=== PATIENT | female | born 1955 ===

== ENCOUNTER 2024-11-02 06:19 | Day surgery (SDC) | payer OTHER ==
[2024-10-27 10:11] VITALS: BP 154/67
[2024-10-27 10:23] LABS: BASO % 0.4 % (0.1-1.2); EOS % 2.6 % (0.7-7.0); HEMATOCRIT 43.1 % (34.1-44.9); HEMOGLOBIN 13.6 g/dL (11.2-15.7); LYMPH # 1.64 (1.18-3.74); LYMPH % 20.9 % (19.3-53.1); MONO # 0.55 (0.24-0.82); PLATELET COUNT 263 K/uL (163-369); RED BLOOD COUNT 5.43 M/uL (3.93-5.22)
[2024-10-27 10:59] LABS: INR 1.04; PARTIAL THROMBOPLASTIN TIME 27.4 SECONDS (22.0-34.0); PROTHROMBIN TIME 11.3 SECONDS (9.0-11.5)
[2024-10-27 11:21] LABS: ALBUMIN 3.5 gm/dL (3.4-5.0); BILIRUBIN TOTAL 0.59 mg/dL (0.3-1.2); CALCIUM 9.4 mg/dL (8.5-10.1); CREATININE SERUM 1.22 mg/dL (0.55-1.02); GFR 43.96; GLOBULINA 3.8 G/DL (2.4-3.5); POTASSIUM 4.04 mEq/L (3.5-5.1); TOTAL PROTEIN 7.3 gm/dL (6.4-8.2)
[2024-10-27 11:49] LABS: PH,URINE 5.5 (5.0-8.0); URINE APPEARANCE Cloudy; URINE BACTERIA 3600.6 uL (0.0-1933); URINE BILIRRUBIN Small (NEGATIVE); URINE BLOOD Moderate; URINE CAST 1.76 uL (0.0-1.40); URINE COLOR Dark Yellow; URINE EPITHELIAL CELLS 46.5 uL (0.0-38.8); URINE GLUCOSE Negative (NEGATIVE); URINE KETONE Trace (NEGATIVE); URINE LEUKOCYTE Small; URINE NITRATE Negative; URINE PROTEIN 30 (NEGATIVE); URINE RBC 20.9 uL (0.0-20.8); URINE WBC 86.2 uL (0.0-23.2)
[~2024-11-02] VITALS: Ht 160 cm; Wt 102.1 kg
[~2024-11-02 06:19] MED LIST: NO; PREVACID30 MG PO
[2024-11-02] MEDS ORDERED: POVIDONE-IODINE 118 ML BOTT TOP ONE (07:19)
[2024-11-02] MEDS ORDERED: IBU800 MG PO (08:40)
[2024-11-02] MEDS ORDERED: ONDANSETRON HCL 2 MG/ML VIAL IV ONE (08:45)
[2024-11-02] MEDS ORDERED: KETOROLAC TROMETHAMINE 30 MG VIAL IV ONE (08:45)
== END 2024-11-02 14:05 | disposition home or self-care (01) ==
LOC: CIR.AMB 06:19
PROVIDERS: ATTEND Obstetrics & Gynecology
DX: N95.0 Postmenopausal bleeding (principal); N84.0 Polyp of corpus uteri